=== PATIENT | male | born 1975 | race Caucasian/White ===

== ENCOUNTER 2017-07-29 19:11 | Emergency (ER) | payer OTHER ==
[2017-07-29] MEDS ORDERED: Ketorolac 30 MG/ML SDV IM ONE (19:49)
--- NOTE | 2017-07-29 20:01 | EDM.PDOC ---
ED HPI GENERAL MEDICAL PROBLEM - General Chief Complaint: Respiratory Problem Stated Complaint: LUNGS HURT Time Seen by Provider: 07/29/17 19:19 Source of Information: Reports: Patient History Limitations: Reports: No Limitations - History of Present Illness INITIAL COMMENTS - FREE TEXT/NARRATIVE: Patient presents with cough and sharp left lower lung/rib pain. The pain hit quite severely today for no apparent reason. Three and a half weeks ago he was diagnosed with pneumonia and treated with a course of Doxycycline which he completed; (he had been given a Z-pack with a diagnosis of bronchitis but when xray reports were available showing pneumonia 3 days later he was switched to Doxycycline). He had a severe cough with that but symptoms resolved with treatment. Shortly after completing the Doxycycline the pain in left lower chest/ribs started but wasn't severe until today. He quit smoking nearly two months ago and was "vaping" until he developed pneumonia but not since. Left Lower Pain Score (Numeric/FACES): 7 - Related Data Allergies Allergy/AdvReac Type Severity Reaction Status Date / Time No Known Drug Allergies Allergy none Verified 07/29/17 19:33 Home Meds: Home Meds . [No Known Home Meds] 07/29/17 [History] ED ROS GENERAL - Review of Systems Review Of Systems: See Below Constitutional: Denies: Fever, Chills, Malaise, Weakness HEENT: Denies: Throat Pain, Vision Change Respiratory: Reports: Shortness of Breath, Cough. Denies: Wheezing Cardiovascular: Denies: Chest Pain, Lightheadedness, Syncope GI/Abdominal: Denies: Abdominal Pain, Diarrhea, Nausea, Vomiting : Denies: Dysuria Musculoskeletal: Reports: No Symptoms Skin: Denies: Cyanosis, Jaundice, Mottled, Pallor, Diaphoresis Neurological: Denies: Confusion, Dizziness, Headache, Seizure, Syncope, Trouble Speaking, Difficulty Walking Psychiatric: Denies: Agitation, Anxiety, Confusion ED EXAM, GENERAL - Physical Exam Exam: See Below Exam Limited By: No Limitations General Appearance: Alert, WD/WN, No Apparent Distress Eye Exam: Bilateral Eye: EOMI, Normal Inspection, PERRL Ears: Normal External Exam, Hearing Grossly Normal Nose: Normal Inspection, No Blood Throat/Mouth: Normal Lips, Normal Voice, No Airway Compromise Head: Atraumatic, Normocephalic Neck: Normal Inspection, Full Range of Motion Respiratory/Chest: No Respiratory Distress, Crackles (left lower lung), Other ( left inferior lateral chest wall tender to palpation in an area about 6x10 cm in size. No pinpoint tenderness, deformity or crepitus noted.). No: Decreased Breath Sounds, Rhonchi, Wheezing, Stridor, Accessory Muscle Use, Retractions Cardiovascular: Regular Rate, Rhythm, No Murmur Back Exam: Normal Inspection, Full Range of Motion Extremities: Normal Inspection, Normal Range of Motion Neurological: Alert, Oriented, Normal Cognition, Normal Gait, No Motor/Sensory Deficits Psychiatric: Normal Affect, Normal Mood Skin Exam: Warm, Dry, Intact, Normal Color, No Rash Course - Vital Signs Last Recorded V/S: Last Vital Signs Temp 98.0 F 07/29/17 19:24 Pulse 85 07/29/17 19:24 Resp 18 07/29/17 19:24 BP 205/98 H 07/29/17 19:24 Pulse Ox 97 07/29/17 19:24 - Orders/Labs/Meds Orders: Active Orders 24 hr Category Date Time Status Ribs 2V w Chest Lt [CR] Stat Exams 07/29/17 19:36 Ordered Meds: Medications Discontinued Medications Generic Name Dose Route Start Last Admin Trade Name Freq PRN Reason Stop Dose Admin Ketorolac Tromethamine 30 mg 07/29/17 19:49 07/29/17 20:04 Toradol IM 07/29/17 19:50 30 mg ONETIME ONE Administration Levofloxacin 750 mg 07/29/17 20:42 Levaquin PO 07/29/17 20:43 ONETIME ONE Levofloxacin Confirm 07/29/17 20:45 Levaquin Administered 07/29/17 20:46 Dose 1,000 mg .ROUTE .STK-MED ONE - Re-Assessments/Exams Free Text/Narrative Re-Assessment/Exam: 07/29/17 20:54 Xrays don't show any pneumothorax, rib fractures, effusion, edema or infiltrate. Based on symptoms and exam I am treating for recurrent pneumonia with Levaquin since he was recently on Zithromax and Doxycycline. Discussed findings and treatment plan with patient. Departure - Departure Time of Disposition: 20:50 Disposition: Home, Self-Care 01 Condition: Good Clinical Impression: Pleuritic chest pain, Recurrent pneumonia CAP (community acquired pneumonia) Qualifiers: Laterality: left Lung location: lower lobe of lung Qualified Code(s): J18.1 - Lobar pneumonia, unspecified organism - Discharge Information Instructions: Community-Acquired Pneumonia, Adult, [id number] Referrals: PCP,Not In Area [Primary Care Provider] - Forms: ED Department Discharge Additional Instructions: 1. Drink 8 cups of water daily. 2. Take the Levaquin as directed. 3. Follow up with a clinic provider in 3-4 days if not improving or sooner if worsening. 4. Go to ER as needed for worsening. - My Orders Last 24 Hours: My Active Orders 07/29/17 19:36 Ribs 2V w Chest Lt [CR] Stat - Assessment/Plan Last 24 Hours: My Active Orders 07/29/17 19:36 Ribs 2V w Chest Lt [CR] Stat
[2017-07-29] MEDS ORDERED: Levofloxacin 500 MG Tab PO ONE (20:42)
[2017-07-29] MEDS ORDERED: Levofloxacin 500 MG Tab ONE (20:45)
== END 2017-07-29 21:05 | disposition home or self-care (01) ==
LOC: KA.ED 19:11
DX: J18.9 Pneumonia, unspecified organism (principal); Z87.891 Personal history of nicotine dependence
CPT/HCPCS: 71101; 99283; A9270; J1885; 96372